=== PATIENT | female | born 1985 | race Caucasian/White ===

== ENCOUNTER 2016-12-28 16:12 | Emergency (ER) | payer OTHER, SELFPAY ==
[~2016-12-28 16:12] MED LIST: DOCOSAHEXAENOIC ACID; FISH OIL 1,2001 CAP PO; FOLIC ACID0.4 MG PO; IBUPROFEN200 M2 PO; METFORMIN HCL500 M2 PO; NORCO 5-325 TA1 EACH PO; NORCO 5/325 TAB1 TAB PO; NORCO 5/3251 TA2 NG; PHENTERMINE H37.5 M2 PO; PRENATAL; PRENATAL1 EACH PO; TUMS500 M1 PO; VITAMIN D 22000 UNIT PO; VITAMIN D1000 UNIT; ZOFRAN ODT4 MG/UDTAB PO; ZOFRAN4 MG PO
[2016-12-28] MEDS ORDERED: NALTREXONE HCL50 MG PO (16:17)
[2016-12-28] MEDS ORDERED: WELLBUTRIN SR150 M2 PO (16:18)
[2016-12-28] MEDS ORDERED: MULTIVITAMINS1 EAC6 PO (16:18)
[2016-12-28 17:39] LABS: BASO % 0.2 % (0-2); EOS % 3.3 % (0-7); EOSINOPHIL ABSOLUTE COUNT 0.2 tho/cmm (0.0-0.7); HCT-HEMATOCRIT 36.8 % (34.0-49.0); HGB-HEMOGLOBIN 12.4 gm/dl (12.0-15.5); IMMATURE GRANULOCYTES ABSOLUTE 0.01 tho/cmm (0-0.03); IMMATURE GRANULOCYTES PERCENT 0.2 % (0-0.3); LYMPH % 16.7 % (20-45); MCH (MEAN CORPUSCULAR HGB) 28.7 pg (28.0-32.0); MCHC MEAN CORPUSCULAR HGB CONC 33.7 % (32.0-36.0); MCV (MEAN CELL VOLUME) 85.2 fl (82.0-96.0); MEAN PLATELET VOLUME 9.6 cmc (9.4-12.4); MONO % 4.7 % (0-12); MONOCYTE ABSOLUTE COUNT 0.3 tho/cmm (0.0-1.2); NEUTROPHIL ABSOLUTE COUNT 4.3 tho/cmm (1.6-8.0); NEUTROPHIL-AUTOMATED 4.3 tho/cmm (1.6-8.0); NEUTROPHILS % 74.9 % (40-80); PLATELET COUNT 204 tho/cmm (150-450); RED BLOOD COUNT 4.32 mil/cmm (4.00-5.20); RED CELL DISTRIBUTION WIDTH 12.4 % (12.4-16.4); WHITE BLOOD COUNT 5.7 tho/cmm (4.0-10.0)
[2016-12-28 17:50] LABS: ANION GAP 10 mmol/L (0-20); BLOOD UREA NITROGEN 12 mg/dl (6-24); CALCIUM 7.9 mg/dl (8.5-10.5); CARBON DIOXIDE-VENOUS 27 mmol/L (22-32); CHLORIDE 110 mmol/l (96-110); CREATININE 0.86 mg/dl (0.50-1.10); GLUCOSE 119 mg/dL (70-110); SODIUM 143 mmol/L (135-145); eGFR VALUE FOR BLACK >90 mL/Min
[2016-12-28 17:55] LABS: PREGNANCY-SERUM NEGATIVE (NEGATIVE)
[2016-12-28 18:38] LABS: URINE BILIRUBIN NEGATIVE (NEG); URINE BLOOD LARGE (NEG); URINE GLUCOSE (UA) NEGATIVE (NEG); URINE KETONE SMALL (NEG); URINE LEUKOCYTE ESTERASE POSITIVE (NEG); URINE NITRITE NEGATIVE (NEG); URINE PROTEIN MODERATE (NEG); URINE SPECIFIC GRAVITY 1.025 (1.003-1.030)
[2016-12-28 18:39] LABS: URINE COLOR YELLOW
[2016-12-28 18:40] LABS: URINE APPEARANCE CLOUDY
[2016-12-28 18:44] LABS: URINE AMORPHOUS 2+; URINE MUCUS 2+; URINE RBC 60-80 /[HPF] (0-5); URINE WBC 0-3 /[HPF] (0-5)
[2016-12-28 19:29] LABS: ALB/GLOB RATIO 1.1 (0.8-2.0); ALBUMIN 3.4 g/dl (3.5-5.0); ALKALINE PHOSPHATASE 76 U/L (33-138); ALT/SGPT 20 U/L (12-78); AST/SGOT 20 U/L (10-40); BILIRUBIN,DIRECT <0.1 mg/dl (0.0-0.3); BILIRUBIN,INDIRECT 0.1 mg/dL (0.0-1.0); BILIRUBIN,TOTAL 0.2 mg/dl (0-1.5)
== END 2016-12-28 19:40 ==
LOC: EDMED 16:12
PROVIDERS: Physician Assistant
DX: R10.31 Right lower quadrant pain (principal); Z90.49 Acquired absence of other specified parts of digestive tract
CPT/HCPCS: J1885; P9612